=== PATIENT | female | born 1990 | race Caucasian/White ===

== ENCOUNTER → 2018-03-10 | Outpatient (CLI) | payer BC, OTHER ==
--- NOTE | 2018-03-10 13:53 | DIAGNOSTIC IMAGING REPORT ---
LEFT FOOT 3 VIEWS HISTORY: LEFT FOOT PAIN COMPARISON: None. FINDINGS: Nondisplaced slightly comminuted fracture within the base of the proximal phalanx of the fifth toe. This is not clearly extend to the joint space. Soft tissue swelling within the fifth toe. No radiopaque foreign bodies. IMPRESSION: Nondisplaced slightly comminuted fracture within the proximal phalanx of the left fifth toe. Electronically signed by: Otto Strauss M.D. 03/10/2018 1:52 PM Dictated Date/Time: 03/10/2018 1:51 PM
== END | disposition home or self-care (01) ==
LOC: C.RDSM 13:40
PROVIDERS: ATTEND Internal Medicine
DX: M79.672 Pain in left foot (principal); S92.515A Nondisplaced fracture of proximal phalanx of left lesser toe(s), initial encounter for closed fracture; X58.XXXA Exposure to other specified factors, initial encounter